=== PATIENT | male | born 1940 | race Caucasian/White ===

== ENCOUNTER 2021-05-30 03:38 | Inpatient (IN) | payer MEDICARE, BC ==
[2021-05-30] MEDS ORDERED: Magnesium 2 GM/50 ML BAG (IN WATER) ONE (04:05)
[2021-05-30] MEDS ORDERED: methylPREDNISolone Sod Succ/PF 125 MG/2 ML VIAL ONE (04:05)
[2021-05-30] MEDS ORDERED: Albuterol Sulfate 2.5 mg/0.5 ml Neb ONE (04:11)
[2021-05-30 04:21] LABS: INR-International Normal Ratio 1.1; PTT 22.8 sec (22.0-33.0); Prothrombin Time 12.4 sec (9.5-12.1)
[2021-05-30 04:24] LABS: ALT (SGPT) 46 U/L (8-55); AST (SGOT) 50 U/L (5-34); Albumin 3.8 g/dL (3.4-4.8); Alkaline Phosphatase 70 U/L (40-110); Anion Gap 16 mmol/L (10-20); BUN (Urea Nitrogen) 25 mg/dL (8.4-25.7); Bilirubin, Total 0.5 mg/dL (0.2-1.2); Calc. Creatinine Clearance 0 mL/min (70-130); Calcium 8.8 mg/dL (7.8-10.44); Carbon Dioxide 21 mmol/L (23-31); Chloride 98 mmol/L (98-107); Globulin 3.9 g/dL (2.4-3.5); Glucose 185 mg/dL (83-110); Magnesium 2.2 mg/dL (1.6-2.6); Potassium 4.9 mmol/L (3.5-5.1); Protein, Total 7.7 g/dL (5.8-8.1); Sodium 130 mmol/L (136-145)
[2021-05-30 04:35] LABS: #Monocytes 1.3 10x3/uL (0.0-1.1); #Neutrophils 8.8 10x3/uL (1.5-8.4); %Basophils 0.4 % (0.0-2.0); %Eosinophils 0.1 % (0.0-6.0); %Lymphocytes 10.7 % (18.0-47.0); %Monocytes 11.1 % (0.0-10.0); %Neutrophils 77.1 % (40.0-75.0); Hemoglobin 6.5 g/dL (13.5-17.5); Mean Corpuscular Hemoglobin 22.2 pg (27.0-33.0); Mean Corpuscular Volume 79.2 fl (81.2-95.1); Mean Platelet Volume 11.5 fl (7.4-10.4); Platelet Count 294 10x3/uL (150-450); Red Blood Cell (RBC) Count 2.93 10x6/uL (4.32-5.72); White Blood Cell (WBC) Count 11.4 10x3/uL (3.5-10.5)
[2021-05-30 04:49] LABS: SARS-CoV-2 NAA Rapid Test Not Detected (NotDetected)
[2021-05-30] MEDS ORDERED: cefTRIAXone\\ROCEPHIN 2 GM VIAL ONE (04:50)
[2021-05-30] MEDS ORDERED: Cefepime 2 GM VIAL ONE (04:51)
[2021-05-30 05:02] LABS: CKMB 5.6 ng/mL (0-6.6)
[2021-05-30] MEDS ORDERED: Dextrose 5% in Water 1,000 ML IV PRN (06:03)
[2021-05-30] MEDS ORDERED: Ondansetron PF 4 MG/2 ML Vial IVP PRN (06:03)
[2021-05-30] MEDS ORDERED: Zolpidem Tartrate 5 MG TAB PO PRN (06:03)
[2021-05-30] MEDS ORDERED: Dextrose 50% Abboject 50 ML SYRINGE SLOW IVP PRN (06:03)
[2021-05-30] MEDS ORDERED: HYDROcodone/Acetaminophen 5/325 mg Tablet PO PRN (06:03)
[2021-05-30] MEDS ORDERED: Acetaminophen 325 MG TAB PO PRN (06:03)
[2021-05-30] MEDS ORDERED: Calcium Carbonate 500 MG ChewTAB PO PRN (06:03)
[2021-05-30] MEDS ORDERED: Furosemide 40 MG/4 ML VIAL ONE (06:07)
[2021-05-30 06:33] LABS: Platelet Morphology Comment Appears Adequate
[2021-05-30 06:34] LABS: Anisocytosis SLIGHT = 6-15 cells (100X) (0-5/hpf); Hypochromia SLIGHT = 6-15 cells (100X) (0-5/hpf); Macrocytosis SLIGHT = 6-15 cells (100X) (0-5/hpf); Microcytosis SLIGHT = 6-15 cells (100X) (0-5/hpf)
[2021-05-30 06:35] LABS: Schistocytes SLIGHT = 2-5 cells (100X) (0-1/hpf); Tear Drops SLIGHT = 2-5 cells (100X) (0-1/hpf)
[2021-05-30] MEDS ORDERED: Albuterol Sulfate 2.5 mg/3 ml Neb ONE (07:50)
[2021-05-30] MEDS ORDERED: Pantoprazole 40 MG VIAL ONE (08:24)
[2021-05-30] MEDS: Furosemide 20 MG/2 ML VIAL SLOW IVP SCH (08:37)
[2021-05-30] MEDS: Ubidecarenone 50 MG CAP PO SCH (08:38)
[2021-05-30] MEDS: Thiamine 100 MG TAB PO SCH (08:38)
[2021-05-30] MEDS: Folic Acid 1 MG TAB PO SCH (08:39)
[2021-05-30] MEDS: Multivitamin W/ Minerals 1 TAB PO SCH (08:39)
[2021-05-30] MEDS: Metoprolol Tartrate 25 MG TAB PO SCH ×2 (08:39→20:10)
[2021-05-30] MEDS: Pantoprazole 40 MG VIAL IVP SCH (08:39)
[2021-05-30] MEDS: Escitalopram Oxalate 20 mg Tablet PO SCH (08:39)
[2021-05-30] MEDS: Mometasone 200 MCG/Formoterol 5 MCG 120 PUFF INHALER INH SCH ×2 (08:54→19:00)
[2021-05-30] MEDS: Digoxin 0.25 MG TAB PO SCH (08:55)
[2021-05-30] MEDS ORDERED: Albuterol Sulfate 2.5 mg/3 ml Neb NEB SCH (09:00)
[2021-05-30] MEDS ORDERED: Lantus 1000 UNITS/10 ML VIAL SC SCH (09:00)
[2021-05-30 09:33] LABS: Lactic Acid 0.9 mmol/L (0.5-2.2)
[2021-05-30 10:09] LABS: CKMB 14.8 ng/mL (0-6.6)
[2021-05-30] MEDS: HumaLOG 300 UNITS/3 ML VIAL SC PRN ×3 (10:23→22:14)
[2021-05-30] MEDS: Lisinopril 2.5 MG TAB PO SCH (10:26)
[2021-05-30] MEDS: methylPREDNISolone Sod Succ/PF 125 MG/2 ML VIAL IVP SCH ×3 (11:06→23:44)
[2021-05-30 11:07] LABS: Bilirubin Neg (Negative); Blood, Urine Negative (Negative); Clarity Clear (Clear); Glucose, Urine (Dipstick) Normal (Negative); Ketone, Urine Negative (Negative); Leukocyte Negative (Negative); Nitrite Negative (Negative); Protein, Urine (Dipstick) 15 mg/dl (Neg-Trace); Urobilinogen Normal mg/dL (Less than 2)
[2021-05-30 11:18] LABS: Legionella Urinary Ag Negative (Negative); Strep pneumo Urine Ag NEGATIVE (NEGATIVE)
[2021-05-30 11:22] LABS: Bacteria/HPF None Seen HPF (None Seen); RBC/HPF 0-3 HPF (0-3); Squamous Epithelial None Seen HPF (0-3); WBC/HPF None Seen HPF (0-3)
[2021-05-30] MEDS ORDERED: Magnesium 2 GM/50 ML 2 GM in Premix Bag 1 BAG IVPB SCH (13:00)
[2021-05-30 13:26] LABS: #Monocytes 0.1 10x3/uL (0.0-1.1); #Neutrophils 9.7 10x3/uL (1.5-8.4); %Lymphocytes 3.2 % (18.0-47.0); %Neutrophils 95.2 % (40.0-75.0); Mean Corpuscular HGB CONC 29.3 g/dL (32.0-36.0); Mean Corpuscular Hemoglobin 23.4 pg (27.0-33.0); Mean Corpuscular Volume 79.9 fl (81.2-95.1); Mean Platelet Volume 12.2 fl (7.4-10.4); Platelet Count 254 10x3/uL (150-450); RBC Distribution Width 17.5 % (11.5-14.5); Red Blood Cell (RBC) Count 2.99 10x6/uL (4.32-5.72); White Blood Cell (WBC) Count 10.2 10x3/uL (3.5-10.5)
[2021-05-30] MEDS: Cefepime 1 GM in Sodium Chloride 0.9% 100 ML IVPB SCH (16:33)
[2021-05-30 20:08] LABS: Hemoglobin 8.2 g/dL (13.5-17.5)
[2021-05-30] MEDS: Montelukast Sodium 10 mg Tablet PO SCH (20:10)
[2021-05-30] MEDS: Atorvastatin Calcium 40 MG TAB PO SCH (20:11)
[2021-05-31 03:07] LABS: #Monocytes 0.4 10x3/uL (0.0-1.1); #Neutrophils 9.4 10x3/uL (1.5-8.4); %Basophils 0.1 % (0.0-2.0); %Lymphocytes 3.8 % (18.0-47.0); Hemoglobin 8.1 g/dL (13.5-17.5); Mean Corpuscular Hemoglobin 24.3 pg (27.0-33.0); Mean Corpuscular Volume 81.1 fl (81.2-95.1); Mean Platelet Volume 11.5 fl (7.4-10.4); Platelet Count 233 10x3/uL (150-450); RBC Distribution Width 17.3 % (11.5-14.5); Red Blood Cell (RBC) Count 3.33 10x6/uL (4.32-5.72); White Blood Cell (WBC) Count 10.3 10x3/uL (3.5-10.5)
[2021-05-31] MEDS: Cefepime 1 GM in Sodium Chloride 0.9% 100 ML IVPB SCH ×2 (03:38→17:06)
[2021-05-31] MEDS: HumaLOG 300 UNITS/3 ML VIAL SC PRN ×3 (03:38→21:07)
[2021-05-31 04:15] LABS: ALT (SGPT) 41 U/L (8-55); AST (SGOT) 52 U/L (5-34); Albumin 3.7 g/dL (3.4-4.8); Alkaline Phosphatase 67 U/L (40-110); Anion Gap 15 mmol/L (10-20); BUN (Urea Nitrogen) 34 mg/dL (8.4-25.7); Bilirubin, Total 0.5 mg/dL (0.2-1.2); Calc. Creatinine Clearance 62 mL/min (70-130); Calcium 8.5 mg/dL (7.8-10.44); Carbon Dioxide 20 mmol/L (23-31); Chloride 100 mmol/L (98-107); Globulin 3.8 g/dL (2.4-3.5); Glucose 223 mg/dL (83-110); Magnesium 2.7 mg/dL (1.6-2.6); Phosphorus 4.2 mg/dL (2.3-4.7); Protein, Total 7.5 g/dL (5.8-8.1); Sodium 130 mmol/L (136-145)
[2021-05-31] MEDS: methylPREDNISolone Sod Succ/PF 125 MG/2 ML VIAL IVP SCH ×4 (06:18→23:29)
[2021-05-31] MEDS: Levothyroxine Sodium 50 MCG TAB PO SCH (06:18)
[2021-05-31 06:45] LABS: Digoxin 1.45 ng/mL (0.8-2.0)
[2021-05-31] MEDS ORDERED: Lantus 1000 UNITS/10 ML VIAL SC SCH (07:00)
[2021-05-31] MEDS: Furosemide 20 MG/2 ML VIAL SLOW IVP SCH (08:08)
[2021-05-31] MEDS: Pantoprazole 40 MG VIAL IVP SCH (08:08)
[2021-05-31] MEDS: Mometasone 200 MCG/Formoterol 5 MCG 120 PUFF INHALER INH SCH ×2 (08:08→19:10)
[2021-05-31] MEDS: Ubidecarenone 50 MG CAP PO SCH (09:49)
[2021-05-31] MEDS: Folic Acid 1 MG TAB PO SCH (09:50)
[2021-05-31] MEDS: Multivitamin W/ Minerals 1 TAB PO SCH (09:50)
[2021-05-31] MEDS: Lisinopril 2.5 MG TAB PO SCH (09:50)
[2021-05-31] MEDS: Escitalopram Oxalate 20 mg Tablet PO SCH (09:50)
[2021-05-31] MEDS: Metoprolol Tartrate 25 MG TAB PO SCH ×2 (09:50→17:05)
[2021-05-31] MEDS: Thiamine 100 MG TAB PO SCH (09:50)
[2021-05-31] MEDS: Digoxin 0.25 MG TAB PO SCH (09:56)
[2021-05-31 14:21] LABS: Platelet Count 245 10x3/uL (150-450)
[2021-05-31] MEDS: Montelukast Sodium 10 mg Tablet PO SCH (21:05)
[2021-05-31] MEDS: Atorvastatin Calcium 40 MG TAB PO SCH (21:05)
[2021-05-31] MEDS: cloNIDine 0.1 MG TAB PO SCH (21:06)
[2021-05-31] MEDS: Amlodipine 5 MG TAB PO SCH (21:06)
[2021-05-31] MEDS: Lantus 1000 UNITS/10 ML VIAL SC SCH (21:07)
[2021-05-31] MEDS: hydrALAZINE 25 MG TAB PO SCH ×2 (23:28→23:33)
[2021-05-31] MEDS ORDERED: methylPREDNISolone Sod Succ/PF 125 MG/2 ML VIAL ONE (23:29)
[2021-06-01 03:44] LABS: ALT (SGPT) 34 U/L (8-55); AST (SGOT) 33 U/L (5-34); Albumin 3.6 g/dL (3.4-4.8); Alkaline Phosphatase 62 U/L (40-110); Anion Gap 13 mmol/L (10-20); BUN (Urea Nitrogen) 36 mg/dL (8.4-25.7); Bilirubin, Total 0.5 mg/dL (0.2-1.2); Calc. Creatinine Clearance 66 mL/min (70-130); Calcium 8.4 mg/dL (7.8-10.44); Carbon Dioxide 21 mmol/L (23-31); Chloride 103 mmol/L (98-107); Globulin 3.5 g/dL (2.4-3.5); Glucose 331 mg/dL (83-110); Protein, Total 7.1 g/dL (5.8-8.1); Sodium 132 mmol/L (136-145)
[2021-06-01] MEDS: Cefepime 1 GM in Sodium Chloride 0.9% 100 ML IVPB SCH (04:10)
[2021-06-01] MEDS: HumaLOG 300 UNITS/3 ML VIAL SC PRN ×4 (04:13→21:05)
[2021-06-01] MEDS: methylPREDNISolone Sod Succ/PF 125 MG/2 ML VIAL IVP SCH ×4 (05:02→23:24)
[2021-06-01] MEDS: hydrALAZINE 25 MG TAB PO SCH ×3 (05:03→21:07)
[2021-06-01] MEDS: Levothyroxine Sodium 50 MCG TAB PO SCH (05:03)
[2021-06-01] MEDS: Mometasone 200 MCG/Formoterol 5 MCG 120 PUFF INHALER INH SCH ×2 (07:50→19:10)
[2021-06-01] MEDS: Digoxin 0.25 MG TAB PO SCH (08:05)
[2021-06-01] MEDS: Furosemide 20 MG/2 ML VIAL SLOW IVP SCH (08:06)
[2021-06-01] MEDS: Pantoprazole 40 MG VIAL IVP SCH (08:06)
[2021-06-01] MEDS: Lantus 1000 UNITS/10 ML VIAL SC SCH ×2 (08:10→21:07)
[2021-06-01] MEDS: Ubidecarenone 50 MG CAP PO SCH (08:12)
[2021-06-01] MEDS: Escitalopram Oxalate 20 mg Tablet PO SCH (08:14)
[2021-06-01] MEDS: Folic Acid 1 MG TAB PO SCH (08:14)
[2021-06-01] MEDS: Thiamine 100 MG TAB PO SCH (08:15)
[2021-06-01] MEDS: Multivitamin W/ Minerals 1 TAB PO SCH (08:15)
[2021-06-01] MEDS: Lisinopril 2.5 MG TAB PO SCH (08:15)
[2021-06-01] MEDS: Metoprolol Tartrate 25 MG TAB PO SCH ×2 (08:15→21:08)
[2021-06-01] MEDS: cloNIDine 0.1 MG TAB PO SCH ×3 (08:56→21:08)
[2021-06-01] MEDS ORDERED: Lantus 1000 UNITS/10 ML VIAL SC SCH (10:45)
[2021-06-01] MEDS ORDERED: Metoprolol Tartrate 25 MG TAB PO SCH (10:45)
[2021-06-01 11:22] LABS: #Monocytes 0.5 10x3/uL (0.0-1.1); #Neutrophils 11.4 10x3/uL (1.5-8.4); %Basophils 0.1 % (0.0-2.0); %Lymphocytes 2.9 % (18.0-47.0); %Monocytes 4.1 % (0.0-10.0); %Neutrophils 92.1 % (40.0-75.0); Hemoglobin 9.3 g/dL (13.5-17.5); Mean Corpuscular HGB CONC 30.2 g/dL (32.0-36.0); Mean Corpuscular Hemoglobin 24.5 pg (27.0-33.0); Mean Corpuscular Volume 81.3 fl (81.2-95.1); Platelet Count 250 10x3/uL (150-450); RBC Distribution Width 17.4 % (11.5-14.5); Red Blood Cell (RBC) Count 3.79 10x6/uL (4.32-5.72); White Blood Cell (WBC) Count 12.4 10x3/uL (3.5-10.5)
[2021-06-01] MEDS: cefTRIAXone\\ROCEPHIN 1 GM in Sodium Chloride 0.9% 100 ML IVPB SCH (16:48)
[2021-06-01] MEDS: Atorvastatin Calcium 40 MG TAB PO SCH (21:08)
[2021-06-01] MEDS: Senokot S 8.6-50 MG TAB PO PRN (21:08)
[2021-06-01] MEDS: Montelukast Sodium 10 mg Tablet PO SCH (21:08)
[2021-06-01] MEDS: Amlodipine 5 MG TAB PO SCH (21:09)
[2021-06-02 04:34] LABS: #Monocytes 0.3 10x3/uL (0.0-1.1); #Neutrophils 8.7 10x3/uL (1.5-8.4); %Lymphocytes 3.7 % (18.0-47.0); %Neutrophils 92.8 % (40.0-75.0); Hemoglobin 9.4 g/dL (13.5-17.5); Mean Corpuscular HGB CONC 29.7 g/dL (32.0-36.0); Mean Corpuscular Hemoglobin 24.2 pg (27.0-33.0); Mean Corpuscular Volume 81.7 fl (81.2-95.1); Mean Platelet Volume 11.5 fl (7.4-10.4); Platelet Count 236 10x3/uL (150-450); RBC Distribution Width 17.7 % (11.5-14.5); Red Blood Cell (RBC) Count 3.88 10x6/uL (4.32-5.72); White Blood Cell (WBC) Count 9.3 10x3/uL (3.5-10.5)
[2021-06-02 04:44] LABS: ALT (SGPT) 34 U/L (8-55); AST (SGOT) 26 U/L (5-34); Albumin 3.5 g/dL (3.4-4.8); Alkaline Phosphatase 56 U/L (40-110); Anion Gap 12 mmol/L (10-20); BUN (Urea Nitrogen) 39 mg/dL (8.4-25.7); Bilirubin, Total 0.4 mg/dL (0.2-1.2); Calc. Creatinine Clearance 76 mL/min (70-130); Calcium 8.5 mg/dL (7.8-10.44); Carbon Dioxide 23 mmol/L (23-31); Chloride 106 mmol/L (98-107); Globulin 3.6 g/dL (2.4-3.5); Glucose 228 mg/dL (83-110); Magnesium 2.6 mg/dL (1.6-2.6); Potassium 5.1 mmol/L (3.5-5.1); Protein, Total 7.1 g/dL (5.8-8.1); Sodium 136 mmol/L (136-145)
[2021-06-02] MEDS: HumaLOG 300 UNITS/3 ML VIAL SC PRN ×4 (04:54→21:28)
[2021-06-02] MEDS: methylPREDNISolone Sod Succ/PF 125 MG/2 ML VIAL IVP SCH ×4 (05:04→23:57)
[2021-06-02] MEDS: hydrALAZINE 25 MG TAB PO SCH ×3 (05:04→21:10)
[2021-06-02] MEDS: Levothyroxine Sodium 50 MCG TAB PO SCH (05:05)
[2021-06-02 05:27] LABS: Hypochromia SLIGHT = 6-15 cells (100X) (0-5/hpf); Microcytosis SLIGHT = 6-15 cells (100X) (0-5/hpf); Target Cells SLIGHT = 2-5 cells (100X) (0-1/hpf)
[2021-06-02 05:28] LABS: Platelet Morphology Comment Appears Adequate
[2021-06-02] MEDS: Pantoprazole 40 MG VIAL IVP SCH (07:49)
[2021-06-02] MEDS: Furosemide 20 MG/2 ML VIAL SLOW IVP SCH (07:49)
[2021-06-02] MEDS: Ubidecarenone 50 MG CAP PO SCH (07:49)
[2021-06-02] MEDS: Digoxin 0.25 MG TAB PO SCH (07:49)
[2021-06-02] MEDS: Lisinopril 2.5 MG TAB PO SCH (07:49)
[2021-06-02] MEDS: Thiamine 100 MG TAB PO SCH (07:50)
[2021-06-02] MEDS: Metoprolol Tartrate 25 MG TAB PO SCH ×2 (07:50→21:12)
[2021-06-02] MEDS: Folic Acid 1 MG TAB PO SCH (07:50)
[2021-06-02] MEDS: cloNIDine 0.1 MG TAB PO SCH ×3 (07:50→21:11)
[2021-06-02] MEDS: Multivitamin W/ Minerals 1 TAB PO SCH (07:50)
[2021-06-02] MEDS: Escitalopram Oxalate 20 mg Tablet PO SCH (07:51)
[2021-06-02] MEDS: Lantus 1000 UNITS/10 ML VIAL SC SCH ×2 (07:52→21:15)
[2021-06-02] MEDS: Mometasone 200 MCG/Formoterol 5 MCG 120 PUFF INHALER INH SCH ×2 (08:16→20:03)
[2021-06-02] MEDS ORDERED: Melatonin 3 MG TAB PO PRN (11:00)
[2021-06-02] MEDS ORDERED: Polyethylene Glycol 3350 17 GM Packet PO SCH (11:15)
[2021-06-02] MEDS: cefTRIAXone\\ROCEPHIN 1 GM in Sodium Chloride 0.9% 100 ML IVPB SCH (15:54)
[2021-06-02] MEDS: Amlodipine 5 MG TAB PO SCH (21:11)
[2021-06-02] MEDS: Montelukast Sodium 10 mg Tablet PO SCH (21:11)
[2021-06-02] MEDS: Atorvastatin Calcium 40 MG TAB PO SCH (21:12)
[2021-06-03 04:27] LABS: #Monocytes 0.8 10x3/uL (0.0-1.1); #Neutrophils 8.1 10x3/uL (1.5-8.4); %Lymphocytes 7.4 % (18.0-47.0); %Monocytes 8.5 % (0.0-10.0); %Neutrophils 83.6 % (40.0-75.0); Hemoglobin 9.2 g/dL (13.5-17.5); Mean Corpuscular HGB CONC 28.8 g/dL (32.0-36.0); Mean Corpuscular Hemoglobin 23.8 pg (27.0-33.0); Mean Corpuscular Volume 82.7 fl (81.2-95.1); Mean Platelet Volume 11.6 fl (7.4-10.4); Platelet Count 229 10x3/uL (150-450); RBC Distribution Width 17.5 % (11.5-14.5); Red Blood Cell (RBC) Count 3.87 10x6/uL (4.32-5.72); White Blood Cell (WBC) Count 9.7 10x3/uL (3.5-10.5)
[2021-06-03 04:43] LABS: ALT (SGPT) 31 U/L (8-55); AST (SGOT) 18 U/L (5-34); Albumin 3.3 g/dL (3.4-4.8); Alkaline Phosphatase 55 U/L (40-110); Anion Gap 10 mmol/L (10-20); BUN (Urea Nitrogen) 44 mg/dL (8.4-25.7); Bilirubin, Total 0.4 mg/dL (0.2-1.2); Calc. Creatinine Clearance 91 mL/min (70-130); Calcium 8.5 mg/dL (7.8-10.44); Carbon Dioxide 28 mmol/L (23-31); Chloride 105 mmol/L (98-107); Globulin 3.2 g/dL (2.4-3.5); Glucose 192 mg/dL (83-110); Potassium 4.9 mmol/L (3.5-5.1); Protein, Total 6.5 g/dL (5.8-8.1); Sodium 138 mmol/L (136-145)
[2021-06-03] MEDS: Levothyroxine Sodium 50 MCG TAB PO SCH (05:49)
[2021-06-03] MEDS: hydrALAZINE 25 MG TAB PO SCH ×3 (05:52→22:12)
[2021-06-03] MEDS: methylPREDNISolone Sod Succ/PF 125 MG/2 ML VIAL IVP SCH (05:52)
[2021-06-03] MEDS: Mometasone 200 MCG/Formoterol 5 MCG 120 PUFF INHALER INH SCH ×2 (07:28→18:56)
[2021-06-03] MEDS: Pantoprazole 40 MG VIAL IVP SCH (08:31)
[2021-06-03] MEDS: Lisinopril 2.5 MG TAB PO SCH (08:32)
[2021-06-03] MEDS: Metoprolol Tartrate 25 MG TAB PO SCH ×2 (08:32→22:05)
[2021-06-03] MEDS: Furosemide 20 MG TAB PO SCH (08:32)
[2021-06-03] MEDS: Multivitamin W/ Minerals 1 TAB PO SCH (08:32)
[2021-06-03] MEDS: Ubidecarenone 50 MG CAP PO SCH (08:32)
[2021-06-03] MEDS: Digoxin 0.25 MG TAB PO SCH (08:33)
[2021-06-03] MEDS: Folic Acid 1 MG TAB PO SCH (08:33)
[2021-06-03] MEDS: cloNIDine 0.1 MG TAB PO SCH ×3 (08:33→22:07)
[2021-06-03] MEDS: Escitalopram Oxalate 20 mg Tablet PO SCH (08:33)
[2021-06-03] MEDS: Polyethylene Glycol 3350 17 GM Packet PO SCH (08:33)
[2021-06-03] MEDS: Lantus 1000 UNITS/10 ML VIAL SC SCH ×2 (08:34→21:30)
[2021-06-03] MEDS: Thiamine 100 MG TAB PO SCH (08:37)
[2021-06-03] MEDS: HumaLOG 300 UNITS/3 ML VIAL SC PRN ×3 (09:30→21:42)
[2021-06-03] MEDS: methylPREDNISolone Sod Succ 40 MG VIAL IVP SCH ×2 (14:21→21:32)
[2021-06-03] MEDS ORDERED: Fleet Enema 133 ML BOT PR SCH (15:00)
[2021-06-03] MEDS: Montelukast Sodium 10 mg Tablet PO SCH (21:45)
[2021-06-03] MEDS: Atorvastatin Calcium 40 MG TAB PO SCH (22:05)
[2021-06-03] MEDS: Amlodipine 5 MG TAB PO SCH (22:06)
[2021-06-03] MEDS: Guaifenesin DM 100-10/5 ML UDCUP PO PRN (22:09)
[2021-06-04 04:55] LABS: #Monocytes 0.5 10x3/uL (0.0-1.1); #Neutrophils 8.7 10x3/uL (1.5-8.4); %Lymphocytes 3.8 % (18.0-47.0); %Monocytes 5.1 % (0.0-10.0); %Neutrophils 90.4 % (40.0-75.0); Hemoglobin 9.8 g/dL (13.5-17.5); Mean Corpuscular HGB CONC 29.2 g/dL (32.0-36.0); Mean Corpuscular Hemoglobin 23.8 pg (27.0-33.0); Mean Corpuscular Volume 81.8 fl (81.2-95.1); Mean Platelet Volume 11.1 fl (7.4-10.4); Platelet Count 226 10x3/uL (150-450); RBC Distribution Width 17.8 % (11.5-14.5); Red Blood Cell (RBC) Count 4.11 10x6/uL (4.32-5.72); White Blood Cell (WBC) Count 9.6 10x3/uL (3.5-10.5)
[2021-06-04 05:09] LABS: Anion Gap 13 mmol/L (10-20); BUN (Urea Nitrogen) 40 mg/dL (8.4-25.7); Calc. Creatinine Clearance 90 mL/min (70-130); Calcium 8.6 mg/dL (7.8-10.44); Carbon Dioxide 27 mmol/L (23-31); Chloride 104 mmol/L (98-107); Glucose 232 mg/dL (83-110); Magnesium 2.3 mg/dL (1.6-2.6); Potassium 4.8 mmol/L (3.5-5.1); Sodium 139 mmol/L (136-145)
[2021-06-04] MEDS: Levothyroxine Sodium 50 MCG TAB PO SCH (05:58)
[2021-06-04] MEDS: hydrALAZINE 25 MG TAB PO SCH ×3 (05:58→21:28)
[2021-06-04] MEDS: methylPREDNISolone Sod Succ 40 MG VIAL IVP SCH ×3 (05:59→21:29)
[2021-06-04] MEDS: HumaLOG 300 UNITS/3 ML VIAL SC PRN ×4 (06:00→21:29)
[2021-06-04] MEDS: Mometasone 200 MCG/Formoterol 5 MCG 120 PUFF INHALER INH SCH ×2 (07:33→17:31)
[2021-06-04] MEDS: Polyethylene Glycol 3350 17 GM Packet PO SCH (08:12)
[2021-06-04] MEDS: Pantoprazole 40 MG VIAL IVP SCH (08:12)
[2021-06-04] MEDS: Furosemide 20 MG TAB PO SCH (08:13)
[2021-06-04] MEDS: Multivitamin W/ Minerals 1 TAB PO SCH (08:13)
[2021-06-04] MEDS: Folic Acid 1 MG TAB PO SCH (08:13)
[2021-06-04] MEDS: Digoxin 0.25 MG TAB PO SCH (08:13)
[2021-06-04] MEDS: Ubidecarenone 50 MG CAP PO SCH (08:13)
[2021-06-04] MEDS: cloNIDine 0.1 MG TAB PO SCH ×3 (08:13→21:28)
[2021-06-04] MEDS: Escitalopram Oxalate 20 mg Tablet PO SCH (08:14)
[2021-06-04] MEDS: Metoprolol Tartrate 25 MG TAB PO SCH ×2 (08:14→21:28)
[2021-06-04] MEDS: Thiamine 100 MG TAB PO SCH (08:14)
[2021-06-04] MEDS: Lisinopril 2.5 MG TAB PO SCH (08:14)
[2021-06-04] MEDS: Lantus 1000 UNITS/10 ML VIAL SC SCH ×2 (08:15→21:28)
[2021-06-04] MEDS: Guaifenesin DM 100-10/5 ML UDCUP PO PRN ×2 (12:10→21:43)
[2021-06-04] MEDS: Amlodipine 5 MG TAB PO SCH (21:26)
[2021-06-04] MEDS: Atorvastatin Calcium 40 MG TAB PO SCH (21:27)
[2021-06-04] MEDS: Montelukast Sodium 10 mg Tablet PO SCH (21:28)
[2021-06-05 04:21] LABS: #Monocytes 0.6 10x3/uL (0.0-1.1); #Neutrophils 10.1 10x3/uL (1.5-8.4); %Basophils 0.1 % (0.0-2.0); %Lymphocytes 3.7 % (18.0-47.0); %Monocytes 5.5 % (0.0-10.0); %Neutrophils 89.9 % (40.0-75.0); Hemoglobin 10.6 g/dL (13.5-17.5); Mean Corpuscular HGB CONC 30.1 g/dL (32.0-36.0); Mean Corpuscular Hemoglobin 24.2 pg (27.0-33.0); Mean Corpuscular Volume 80.4 fl (81.2-95.1); Mean Platelet Volume 10.7 fl (7.4-10.4); Platelet Count 210 10x3/uL (150-450); RBC Distribution Width 18.1 % (11.5-14.5); Red Blood Cell (RBC) Count 4.38 10x6/uL (4.32-5.72); White Blood Cell (WBC) Count 11.2 10x3/uL (3.5-10.5)
[2021-06-05 04:38] LABS: Anion Gap 11 mmol/L (10-20); BUN (Urea Nitrogen) 36 mg/dL (8.4-25.7); Calc. Creatinine Clearance 104 mL/min (70-130); Calcium 8.4 mg/dL (7.8-10.44); Carbon Dioxide 29 mmol/L (23-31); Chloride 103 mmol/L (98-107); Glucose 198 mg/dL (83-110); Potassium 4.7 mmol/L (3.5-5.1); Sodium 138 mmol/L (136-145)
[2021-06-05] MEDS: HumaLOG 300 UNITS/3 ML VIAL SC PRN ×4 (05:00→21:19)
[2021-06-05] MEDS: hydrALAZINE 25 MG TAB PO SCH ×3 (05:49→21:08)
[2021-06-05] MEDS: Levothyroxine Sodium 50 MCG TAB PO SCH (05:49)
[2021-06-05] MEDS: methylPREDNISolone Sod Succ 40 MG VIAL IVP SCH ×3 (05:50→21:08)
[2021-06-05] MEDS: Mometasone 200 MCG/Formoterol 5 MCG 120 PUFF INHALER INH SCH ×2 (07:29→19:07)
[2021-06-05] MEDS: Polyethylene Glycol 3350 17 GM Packet PO SCH (08:12)
[2021-06-05] MEDS: Ubidecarenone 50 MG CAP PO SCH (08:12)
[2021-06-05] MEDS: Folic Acid 1 MG TAB PO SCH (08:12)
[2021-06-05] MEDS: Furosemide 20 MG TAB PO SCH ×3 (08:12→14:28)
[2021-06-05] MEDS: Lisinopril 2.5 MG TAB PO SCH (08:12)
[2021-06-05] MEDS: Pantoprazole 40 MG VIAL IVP SCH (08:12)
[2021-06-05] MEDS: Escitalopram Oxalate 20 mg Tablet PO SCH (08:12)
[2021-06-05] MEDS: Multivitamin W/ Minerals 1 TAB PO SCH (08:12)
[2021-06-05] MEDS: Lantus 1000 UNITS/10 ML VIAL SC SCH ×2 (08:13→21:18)
[2021-06-05] MEDS: Metoprolol Tartrate 25 MG TAB PO SCH ×2 (08:13→21:08)
[2021-06-05] MEDS: Digoxin 0.25 MG TAB PO SCH (08:13)
[2021-06-05] MEDS: cloNIDine 0.1 MG TAB PO SCH ×3 (08:13→21:09)
[2021-06-05] MEDS: Thiamine 100 MG TAB PO SCH (08:13)
[2021-06-05] MEDS: Guaifenesin DM 100-10/5 ML UDCUP PO PRN (09:26)
[2021-06-05] MEDS: Lisinopril 5 MG TAB PO SCH (09:29)
[2021-06-05 20:41] LABS: SARS-CoV-2 PCR by NAA Not Detected (NotDetected)
[2021-06-05] MEDS: Montelukast Sodium 10 mg Tablet PO SCH (21:08)
[2021-06-05] MEDS: Amlodipine 5 MG TAB PO SCH (21:08)
[2021-06-05] MEDS: Atorvastatin Calcium 40 MG TAB PO SCH (21:08)
[2021-06-06 03:55] LABS: #Monocytes 0.5 10x3/uL (0.0-1.1); %Basophils 0.1 % (0.0-2.0); %Lymphocytes 3.3 % (18.0-47.0); %Monocytes 3.9 % (0.0-10.0); Hemoglobin 10.5 g/dL (13.5-17.5); Mean Corpuscular HGB CONC 30.3 g/dL (32.0-36.0); Mean Corpuscular Volume 79.2 fl (81.2-95.1); Platelet Count 208 10x3/uL (150-450); RBC Distribution Width 17.9 % (11.5-14.5); Red Blood Cell (RBC) Count 4.37 10x6/uL (4.32-5.72); White Blood Cell (WBC) Count 11.9 10x3/uL (3.5-10.5)
[2021-06-06 04:09] LABS: Anion Gap 12 mmol/L (10-20); BUN (Urea Nitrogen) 35 mg/dL (8.4-25.7); Calc. Creatinine Clearance 104 mL/min (70-130); Calcium 8.2 mg/dL (7.8-10.44); Carbon Dioxide 28 mmol/L (23-31); Chloride 100 mmol/L (98-107); Glucose 183 mg/dL (83-110); Potassium 4.5 mmol/L (3.5-5.1); Sodium 135 mmol/L (136-145)
[2021-06-06] MEDS: methylPREDNISolone Sod Succ 40 MG VIAL IVP SCH ×3 (05:03→21:00)
[2021-06-06] MEDS: hydrALAZINE 25 MG TAB PO SCH ×3 (05:03→21:00)
[2021-06-06] MEDS: HumaLOG 300 UNITS/3 ML VIAL SC PRN ×4 (05:03→20:52)
[2021-06-06] MEDS: Levothyroxine Sodium 50 MCG TAB PO SCH (05:03)
[2021-06-06] MEDS: Senokot S 8.6-50 MG TAB PO PRN (05:04)
[2021-06-06] MEDS: Mometasone 200 MCG/Formoterol 5 MCG 120 PUFF INHALER INH SCH ×2 (07:23→19:15)
[2021-06-06] MEDS: Furosemide 20 MG TAB PO SCH ×2 (08:46→14:19)
[2021-06-06] MEDS: Metoprolol Tartrate 25 MG TAB PO SCH ×2 (08:46→20:57)
[2021-06-06] MEDS: Multivitamin W/ Minerals 1 TAB PO SCH (08:46)
[2021-06-06] MEDS: Ubidecarenone 50 MG CAP PO SCH (08:46)
[2021-06-06] MEDS: Digoxin 0.25 MG TAB PO SCH (08:46)
[2021-06-06] MEDS: Polyethylene Glycol 3350 17 GM Packet PO SCH (08:46)
[2021-06-06] MEDS: Pantoprazole 40 MG VIAL IVP SCH (08:46)
[2021-06-06] MEDS: Thiamine 100 MG TAB PO SCH (08:46)
[2021-06-06] MEDS: cloNIDine 0.1 MG TAB PO SCH ×3 (08:46→20:57)
[2021-06-06] MEDS: Folic Acid 1 MG TAB PO SCH (08:46)
[2021-06-06] MEDS: Lisinopril 5 MG TAB PO SCH (08:46)
[2021-06-06] MEDS: Escitalopram Oxalate 20 mg Tablet PO SCH (08:46)
[2021-06-06] MEDS: Lantus 1000 UNITS/10 ML VIAL SC SCH (08:47)
[2021-06-06] MEDS ORDERED: Fleet Enema 133 ML BOT PR PRN (10:19)
[2021-06-06 17:04] VITALS: TEMP 97.6
[2021-06-06] MEDS: Atorvastatin Calcium 40 MG TAB PO SCH (20:56)
[2021-06-06] MEDS: Montelukast Sodium 10 mg Tablet PO SCH (20:57)
[2021-06-06] MEDS: Amlodipine 5 MG TAB PO SCH (20:57)
[2021-06-06] MEDS ORDERED: Lantus 1000 UNITS/10 ML VIAL SC SCH (21:00)
[2021-06-07] MEDS: Levothyroxine Sodium 50 MCG TAB PO SCH (06:08)
[2021-06-07] MEDS: methylPREDNISolone Sod Succ 40 MG VIAL IVP SCH (06:08)
[2021-06-07] MEDS: hydrALAZINE 25 MG TAB PO SCH (06:09)
[2021-06-07] MEDS: Mometasone 200 MCG/Formoterol 5 MCG 120 PUFF INHALER INH SCH (07:53)
[2021-06-07] MEDS: Digoxin 0.25 MG TAB PO SCH (08:25)
[2021-06-07] MEDS: Pantoprazole 40 MG VIAL IVP SCH (08:25)
[2021-06-07] MEDS: Polyethylene Glycol 3350 17 GM Packet PO SCH (08:25)
[2021-06-07] MEDS: Ubidecarenone 50 MG CAP PO SCH (08:25)
[2021-06-07] MEDS: cloNIDine 0.1 MG TAB PO SCH (08:26)
[2021-06-07] MEDS: Multivitamin W/ Minerals 1 TAB PO SCH (08:26)
[2021-06-07] MEDS: Thiamine 100 MG TAB PO SCH (08:34)
[2021-06-07] MEDS: Escitalopram Oxalate 20 mg Tablet PO SCH (08:34)
[2021-06-07] MEDS: Metoprolol Tartrate 25 MG TAB PO SCH (08:34)
[2021-06-07] MEDS: Folic Acid 1 MG TAB PO SCH (08:35)
[2021-06-07] MEDS: Furosemide 20 MG TAB PO SCH (08:35)
[2021-06-07] MEDS: Lisinopril 5 MG TAB PO SCH (08:35)
[2021-06-07] MEDS ORDERED: Lantus 1000 UNITS/10 ML VIAL SC SCH (09:00)
[2021-06-07 09:44] VITALS: BMI 32.4
[2021-06-07] MEDS: HumaLOG 300 UNITS/3 ML VIAL SC PRN (10:49)
[2021-06-07 15:00] VITALS: BP 155/67
== END 2021-06-07 14:40 | disposition home health service (06) | DRG 871 ==
LOC: CSHERS 03:38 → CSHICU 06:30
PROVIDERS: ADMIT Student in an Organized Health Care Education/Training Program; ATTEND Internal Medicine
PROC: 30233N1 Transfusion of Nonautologous Red Blood Cells into Peripheral Vein, Percutaneous Approach (ICD-10-PCS; principal; 2021-05-30)
PROC: 5A09457 Assistance with Respiratory Ventilation, 24-96 Consecutive Hours, Continuous Positive Airway Pressure (ICD-10-PCS; 2021-06-01)
DX: A41.9 Sepsis, unspecified organism (principal); I50.23 Acute on chronic systolic (congestive) heart failure; I21.A1 Myocardial infarction type 2; J96.01 Acute respiratory failure with hypoxia; I13.0 Hypertensive heart and chronic kidney disease with heart failure and stage 1 through stage 4 chronic kidney disease, or unspecified chronic kidney disease; J45.901 Unspecified asthma with (acute) exacerbation; D62 Acute posthemorrhagic anemia; E87.2 Acidosis; N17.9 Acute kidney failure, unspecified; K92.2 Gastrointestinal hemorrhage, unspecified; I48.92 Unspecified atrial flutter; R65.20 Severe sepsis without septic shock; E78.5 Hyperlipidemia, unspecified; I25.10 Atherosclerotic heart disease of native coronary artery without angina pectoris; K62.7 Radiation proctitis; K21.9 Gastro-esophageal reflux disease without esophagitis; M19.90 Unspecified osteoarthritis, unspecified site; E66.01 Morbid (severe) obesity due to excess calories; Z20.822 Contact with and (suspected) exposure to COVID-19; E11.22 Type 2 diabetes mellitus with diabetic chronic kidney disease; N18.9 Chronic kidney disease, unspecified; I48.0 Paroxysmal atrial fibrillation; Z85.46 Personal history of malignant neoplasm of prostate; Z79.4 Long term (current) use of insulin; Z85.038 Personal history of other malignant neoplasm of large intestine; Z92.21 Personal history of antineoplastic chemotherapy; Z92.3 Personal history of irradiation; Z90.49 Acquired absence of other specified parts of digestive tract; Z95.5 Presence of coronary angioplasty implant and graft; Z95.1 Presence of aortocoronary bypass graft; Z95.2 Presence of prosthetic heart valve; Z87.891 Personal history of nicotine dependence; Z87.440 Personal history of urinary (tract) infections; Z79.899 Other long term (current) drug therapy; Z79.01 Long term (current) use of anticoagulants; Z79.890 Hormone replacement therapy; Z79.84 Long term (current) use of oral hypoglycemic drugs; Z79.52 Long term (current) use of systemic steroids; Z68.32 Body mass index [BMI] 32.0-32.9, adult; Z90.89 Acquired absence of other organs; Z88.8 Allergy status to other drugs, medicaments and biological substances
CPT/HCPCS: 0240U; 36415; 36416; 36430; 71045; 80048; 80053; 80162; 81001; 82553; 83605; 83735; 83880; 84100; 84145; 84443; 84484; 85025; 85610; 85730; 86850; 86900; 86901; 87040; 87449; 87899; 93005; 93010; 94640; 94660; 94760; 96365; 96367; 96368; 96375; C9113; J0692; J0696; J1815; J1940; J1956; J2405; J2920; J2930; J3475; J3490; J7611; J7620; P9016; U0003; U0005